=== PATIENT | female | born 1995 | race Two or more races ===

== ENCOUNTER → 2020-08-29 | Outpatient (CLI) | payer OTHER ==
--- NOTE | 2020-08-29 12:23 | RADIOLOGY REPORT (SQ) ---
EXAM DESCRIPTION: U/S NON OB PEL TV W/DOPPLER IMAGES COMPLETED DATE/TIME: 08/29/2020 11:45 am REASON FOR STUDY: PELVIC PAIN R10.2 PELVIC AND PERINEAL PAIN COMPARISON: None. TECHNIQUE: Dynamic and static grayscale images acquired of the pelvis via transvaginal approach and recorded on PACS. Additional selected color Doppler and spectral images recorded. LIMITATIONS: None. FINDINGS: UTERUS: Contour normal. No mass. ENDOMETRIAL STRIPE: No focal or generalized thickening. No masses. CERVIX: 2.7 cm. No nabothian cysts. RIGHT OVARY AND DOPPLER: Normal size. Hemorrhagic cyst measuring 2.1 x 2.3 x 1.7 cm. No worrisome m asses. Normal arterial vascular flow without evidence for torsion. LEFT OVARY AND DOPPLER: Normal size. No worrisome masses. Normal arterial vascular flow without evide nce for torsion. FREE FLUID: None noted. OTHER: No other significant finding. MEASUREMENTS: UTERUS: 6.7 x 4.3 x 5.1 cm. ENDOMETRIAL STRIPE: 9 mm. RIGHT OVARY: 2.9 x 4 x 3.1 cm. LEFT OVARY: 3.1 x 1.5 x 2 cm. IMPRESSION: There is a hemorrhagic cyst in the right ovary. No other significant finding. TECHNICAL DOCUMENTATION: JOB ID: [id number] [employer]- All Rights Reserved Rev Reading location - IP/workstation name: [email or web address]
== END ==
LOC: RAD 11:21
PROVIDERS: ATTEND Physician Assistant
DX: R10.2 Pelvic and perineal pain (principal)
CPT/HCPCS: 76830; 93976